=== PATIENT | female | born 1940 | race Caucasian/White ===

== ENCOUNTER → 2016-09-14 | Outpatient (CLI) | payer MEDICARE, OTHER | LOC: GMAH 15:22 | PROVIDERS: ATTEND Family Medicine | DX: N30.00 Acute cystitis without hematuria (principal) ==

== ENCOUNTER → 2017-01-31 | Outpatient (CLI) | payer MEDICARE, OTHER | LOC: MAMMO 09:50 | PROVIDERS: ATTEND Family Medicine | DX: Z12.31 Encounter for screening mammogram for malignant neoplasm of breast (principal) | CPT/HCPCS: 77063; G0202 ==

== ENCOUNTER → 2017-10-01 | Outpatient (CLI) | payer MEDICARE, OTHER ==
--- NOTE | 2017-10-01 14:39 | CT ---
EXAM DESCRIPTION: Chest w/o Contrast CLINICAL HISTORY: 76 years Female, ASTHMA COMPARISON: None available TECHNIQUE: Contiguous thin section axial images through the chest were obtained without the administration of intravenous contrast. Sagittal and coronal reconstructions were reviewed. FINDINGS: The visualized thyroid gland and supraclavicular region appear normal. No evidence of abnormally enlarged axillary lymphadenopathy. Mildly enlarged and calcified mediastinal hilar lymph nodes noted. Extensive calcification of the aortic arch and coronary artery calcifications noted. The central tracheobronchial tree is patent. Review of the lung windows demonstrate moderate emphysematous changes in both lungs. Scarring of the bilateral lung apices likely appears chronic. A 2.0 x 1.8 cm groundglass opacity in the anterior segment of the right upper lobe could represent infectious/inflammatory etiology. Multiple calcified granulomas are noted scattered throughout the right lung. There is 6 mm partially calcified in the right lower lobe. Multiple tiny noncalcified nodules scattered throughout the left lung which are too small to characterize, however close interval follow-up is recommended. Bronchiectatic changes with scarring is noted in both lungs along with pleural thickening in the apico-posterior segment of the left upper lobe, which also appears chronic. No evidence of pleural effusions. The heart is normal in size with no pericardial effusion. Moderate thickening of the distal esophagus is noted, could be sequelae of reflux esophagitis. Limited evaluation of the upper abdomen demonstrates no gross abnormality. The visualized bones demonstrate mild to moderate degenerative changes of the thoracic and visualized lumbar spine with vacuum disc phenomenon in the lumbar spine. IMPRESSION: 1. A 2.0 x 1.8 cm noncalcified groundglass opacity in the anterior segment of the right upper lobe with multiple small irregular groundglass opacities scattered throughout the right lung could represent infectious/inflammatory etiology. However close interval follow-up is recommended for resolution. 2. Multiple calcified and noncalcified nodules are noted in both lungs, the largest noncalcified/partially calcified nodule in the right lower lobe measuring up to 6 mm which are too small to characterize. Given no prior examination, close interval follow-up is recommended for stability. This exam was performed according to our departmental dose-optimization program, which includes automated exposure control, adjustment of the mA and/or kV according to patient size and/or use of iterative reconstruction technique. Electronically signed by: Tha Wilkins MD 10/01/2017 2:37 PM CDT
== END ==
LOC: CT 10:23
PROVIDERS: ATTEND Internal Medicine
DX: J45.909 Unspecified asthma, uncomplicated (principal); R91.8 Other nonspecific abnormal finding of lung field

== ENCOUNTER → 2018-02-06 | Outpatient (CLI) | payer MEDICARE, OTHER ==
--- NOTE | 2018-02-08 10:52 | MAM ---
EXAM DESCRIPTION: 3D Screening BILATERAL : Digital Mammography. CLINICAL HISTORY: 77 years Female SCREENING . No complaints. No personal or family history of breast cancer. Childbirth. Postmenopausal. No HRT. Bilateral breast cyst aspiration. Lifetime risk of developing breast cancer (Tyrer-Cuzick model)(%): 3.2. COMPARISON: Bilateral screening digital breast tomosynthesis 01/31/2017. No prior reports available. TECHNIQUE: Bilateral CC and MLO projection full-field images, digital tomosynthesis mammographic technique. Bilateral digital 2-D full-field MLO images. CAD not available for tomosynthesis or 2-D images. FINDINGS: The breast parenchymal density pattern is: Scattered areas of fibroglandular density. No skin thickening or nipple retraction. Bilateral solitary microcalcifications. Bilateral vascular calcifications. Right axillary lymph node. No new focal, stellate mass or density, focal asymmetry , and no suspicious microcalcifications bilaterally. Stable mammograms compared to prior study. IMPRESSION: Benign exam. BIRAD CATEGORY: 2 BENIGN FINDINGS. RECOMMENDATIONS: FOLLOW UP: Routine digital bilateral mammographic screening, one year interval from January 2018. Written communication explaining the IMPRESSION and follow-up, will be mailed to the patient and referring health care provider. According to the [employer], yearly mammograms are recommended starting at age 40 and continuing as long as a woman is in good health. Any breast change noted on a breast self-exam should be reported promptly to the patient's healthcare provider. Breast MRI is recommended for women with an approximately 20-25% or greater lifetime risk of breast cancer, including women with a strong family history of breast or ovarian cancer and women who have been treated for Hodgkin's disease. A negative mammographic report should not delay tissue diagnosis in patients with significant clinical history or physical findings. Extremely dense breast tissue limits the sensitivity of digital mammography. Electronically signed by: Rah Nagy MD 02/08/2018 10:51 AM [employer]
== END ==
LOC: MAMMO 11:23
PROVIDERS: ATTEND Family Medicine
DX: Z12.31 Encounter for screening mammogram for malignant neoplasm of breast (principal)

== ENCOUNTER → 2018-04-25 | Outpatient (CLI) | payer MEDICARE, OTHER ==
--- NOTE | 2018-04-25 13:24 | CT ---
EXAM DESCRIPTION: Chest w/o Contrast CLINICAL HISTORY: 77 years, Female, DYSPNEA COMPARISON: Previous CT of the chest October 01, 2017 TECHNIQUE: Thin-section noncontrast axial CT images are obtained according to our protocol. Reconstructed MPR images are created and reviewed as well. FINDINGS: Lungs: No acute appearing consolidating pulmonary infiltrate to suggest pneumonia. Scarring is seen in the lung apices. Clustered nodules with groundglass infiltrate in the anterior segment right upper lobe suggest indolent granulomatous infection. Scattered nodules are seen in the right middle lobe which appears hyperlucent suggesting Swyer Lambert sequelae of old infection. Just above the minor fissure, bronchiectasis is seen in the medial anterior segment right upper lobe in an area of scarring. In the periphery of the left upper lobe near the junction of the anterior segment and upper lingula, subpleural fibrotic changes are seen with multiple nodules. 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 Septal thickening in the right lower lobe is noted more than left. Numerous tiny nodules in the right lower lobe are present consistent with chronic indolent infection. Larger nodule in the posterior basal segment left lower lobe measures 7 mm unchanged from previous study. The nodule in the medial basal segment right lower lobe measures 6 mm also unchanged. The nodule in the lateral aspect of the right lower lobe peripherally measures 6 mm unchanged. A nodule in the hyperlucent lateral segment of the right middle lobe measures 8 mm unchanged. Nodule in the lingula measures 7 mm unchanged. Other nodules and areas of scarring or infiltrate appears stable as well. None of these nodules appear to be enlarged to suggest the potential for malignancy. Repeat study in September 2018 is recommended to ensure continued stability. Mediastinum: Prominent paracardiac lymph nodes appear stable, likely reactive. Right epiphrenic and left epiphrenic prominent nodes are also stable. In the mediastinum, multiple calcified lymph nodes are stable compared to the previous study. Calcified nodes can be seen with old tuberculosis or silicosis. Treated lymphoma or sarcoidosis may have calcified nodes as well. There is moderate coronary arterial calcification. Small hiatal hernia is present. Normal vascular contours. Heart size is normal with no pericardial effusion. Chest wall/axilla: No mass or adenopathy. Lower neck/supraclavicular: No mass or adenopathy. Upper abdomen: Unremarkable upper abdominal viscera. Coronal and sagittal reformatted images confirm the findings. Advanced degenerative disc disease in the T-spine. Sternum appears intact. Prominent caliber of the ascending aorta measures 3.7 cm. IMPRESSION: Scarring and granulomatous changes in the lungs. Measured lung nodules are stable compared to previous study. Follow-up chest CT is recommended in September 2018. This exam was performed according to our departmental dose-optimization program, which includes automated exposure control, adjustment of the mA and/or kV according to patient size and/or use of iterative reconstruction technique. Total DLP equals 219.04 mGycm. Electronically signed by: Saul Sinclair MD 04/25/2018 1:23 PM [facility]
== END ==
LOC: CT 10:58
PROVIDERS: ATTEND Internal Medicine
DX: R06.00 Dyspnea, unspecified (principal); J45.909 Unspecified asthma, uncomplicated; J38.3 Other diseases of vocal cords; Z85.72 Personal history of non-Hodgkin lymphomas

== ENCOUNTER → 2018-12-19 | Outpatient (CLI) | payer MEDICARE, OTHER | LOC: GMA MATASK 10:34 | PROVIDERS: ATTEND Family Medicine | DX: I10 Essential (primary) hypertension (principal) ==

== ENCOUNTER → 2019-04-23 | Outpatient (CLI) | payer MEDICARE, OTHER ==
--- NOTE | 2019-04-23 16:16 | RAD ---
EXAM DESCRIPTION: Shoulder,Left 2 or More Views CLINICAL HISTORY: PAIN IN LEFT SHOULDER COMPARISON: None. IMPRESSION: 2 views of the left shoulder show comminuted moderately displaced and impacted fracture of the proximal left humerus including the humeral head. Fracture does appear to involve the articular surface. No glenohumeral joint dislocation. The left acromioclavicular joint shows mild osteoarthritic changes. Calcifications of the thoracic aorta are seen. Electronically signed by: David Piña MD 04/23/2019 4:15 PM [facility]
== END ==
LOC: RAD 08:53
PROVIDERS: ATTEND Orthopaedic Surgery
DX: S42.292A Other displaced fracture of upper end of left humerus, initial encounter for closed fracture (principal); M19.012 Primary osteoarthritis, left shoulder; I70.0 Atherosclerosis of aorta

== ENCOUNTER → 2019-05-02 | Outpatient (CLI) | payer MEDICARE, OTHER ==
--- NOTE | 2019-05-02 19:34 | RAD ---
EXAM DESCRIPTION: Radiographs of the left Shoulder:XR/CR/DR CLINICAL HISTORY: CLOSED FRACTURE OF PROXIMAL LEFT HUMERUS COMPARISON: Radiographs left shoulder and humerus April 23. TECHNIQUE: Three views. Internal and External rotation. Scapular "Y" image. FINDINGS: Comminuted fracture of the left humeral head with fracture and angulation of the surgical neck of the left humeral head again noted. Varus deformity of the surgical neck. The head is angulated medially from the surgical neck. Mild subluxation at the glenohumeral joint again seen. Arthrosis with no fracture or dislocation AC joint. IMPRESSION: Fracture of the surgical neck of the left humerus with varus deformity and comminuted fragments in the humeral head. Varus deformity may have increased since the prior study, and there is also further inferior subluxation of the head from the glenoid fossa of the left scapula. Electronically signed by: Rah Nagy MD 05/02/2019 7:32 PM [facility] [place]
== END ==
LOC: RAD 10:11
PROVIDERS: ATTEND Orthopaedic Surgery
DX: S42.212D Unspecified displaced fracture of surgical neck of left humerus, subsequent encounter for fracture with routine healing (principal); S43.312 Subluxation of left scapula; M21.822 Other specified acquired deformities of left upper arm

== ENCOUNTER → 2019-05-20 | Outpatient (CLI) | payer MEDICARE, OTHER ==
--- NOTE | 2019-05-20 17:35 | RAD ---
EXAM DESCRIPTION: Shoulder,Left 2 or More Views CLINICAL HISTORY: CLOSED FRACTURE OF PROXIMAL LEFT HUMERUS COMPARISON: 02 May 2019 TECHNIQUE: 2 views left FINDINGS: Exam demonstrates a comminuted fracture of the region of the surgical neck of the left humerus. It remains essentially unchanged from the previous exam. Minimal callus formation is observed at the fracture site. No evidence to suggest dislocation is seen. IMPRESSION: A comminuted fracturing of the surgical neck of the left humerus is again observed unchanged from the previous exam. Electronically signed by: Job Landry MD 05/20/2019 5:34 PM [facility]
== END ==
LOC: RAD 10:12
PROVIDERS: ATTEND Orthopaedic Surgery
DX: S42.202D Unspecified fracture of upper end of left humerus, subsequent encounter for fracture with routine healing (principal)

== ENCOUNTER → 2019-06-26 | Outpatient (CLI) | payer MEDICARE, OTHER ==
--- NOTE | 2019-06-26 10:00 | RAD ---
EXAM DESCRIPTION: Shoulder,Left 1 View CLINICAL HISTORY: Fracture COMPARISON: 05/30/2019. TECHNIQUE: Single frontal views of the left shoulder. FINDINGS/IMPRESSION: Single view of the left shoulder demonstrate interval placement of a left reverse shoulder long stem arthroplasty with overlying skin corine. Small residual bony fragmentation from the comminuted humerus neck fracture proximally. There is no new periprosthetic fracture. Intact hardware without hardware dislocation or subluxation. Electronically signed by: Manuelito Trejo DO 06/26/2019 9:58 AM CDT
== END ==
LOC: RAD 09:29
PROVIDERS: ATTEND Orthopaedic Surgery
DX: S42.202D Unspecified fracture of upper end of left humerus, subsequent encounter for fracture with routine healing (principal); Z96.612 Presence of left artificial shoulder joint; Z18.39 Other retained organic fragments

== ENCOUNTER → 2019-07-28 | Outpatient (CLI) | payer MEDICARE, OTHER ==
--- NOTE | 2019-07-28 09:49 | RAD ---
EXAM DESCRIPTION: Shoulder,Left 1 View CLINICAL HISTORY: CLOSED FRACTURE OF PROXIMAL LEFT HUMERUS COMPARISON: Previous study June 26, 2019 and May 30, 2019 TECHNIQUE: Two views of the left shoulder. FINDINGS: Reverse left shoulder arthroplasty with no change in alignment compared to previous study. Small bone fragment is seen medially. The humeral stem is centrally situated with no complicating fracture distally. The glenoid component appears normally situated. Degenerative narrowing of the AC joint. No scapular fracture is seen. The left clavicle appears intact. IMPRESSION: Reverse left shoulder arthroplasty with alignment unchanged compared to previous study. Electronically signed by: Saul Sinclair MD 07/28/2019 9:48 AM CDT
== END ==
LOC: RAD 09:20
PROVIDERS: ATTEND Orthopaedic Surgery
DX: S42.202D Unspecified fracture of upper end of left humerus, subsequent encounter for fracture with routine healing (principal); Z96.612 Presence of left artificial shoulder joint; Z98.890 Other specified postprocedural states

== ENCOUNTER → 2019-09-08 | Outpatient (CLI) | payer MEDICARE, OTHER ==
--- NOTE | 2019-09-08 10:39 | RAD ---
EXAM DESCRIPTION: Shoulder,Left 2 or More Views CLINICAL HISTORY: CLOSED FRACTURE OF PROXIMAL LEFT HUMEROUS COMPARISON: None Available. TECHNIQUE: Three x-ray views of the left shoulder. FINDINGS: Left shoulder reverse arthroplasty with anatomic alignment of humeral and acetabular components. Fracture fragment is seen medially. Another bone fragment seen above the level of the prosthetic joint. Calcified aortic arch. Blunting of left costophrenic angle. Bones appear osteopenic or osteoporotic. IMPRESSION: Reverse left shoulder arthroplasty with small bone fragments inferiorly and superiorly. Electronically signed by: Saul Sinclair MD 09/08/2019 10:37 AM CDT
== END ==
LOC: RAD 09:59
PROVIDERS: ATTEND Orthopaedic Surgery
DX: S42.202D Unspecified fracture of upper end of left humerus, subsequent encounter for fracture with routine healing (principal); M24.012 Loose body in left shoulder; Z96.612 Presence of left artificial shoulder joint

== ENCOUNTER → 2019-09-11 | Outpatient (CLI) | payer MEDICARE, OTHER ==
--- NOTE | 2019-09-11 12:45 | CT ---
EXAM DESCRIPTION: Pelvis CLINICAL HISTORY: 78 years Female, MASS OF SOFT TISSUE TECHNIQUE: This exam was performed according to our departmental dose-optimization program, which includes automated exposure control, adjustment of the mA and/or kV according to patient size and/or use of iterative reconstruction technique. COMPARISON: None at time of initial interpretation. FINDINGS: Presumed hysterectomy. No adnexal mass. The bladder is decompressed. Scattered colonic diverticula without focal inflammatory change. The visualized bowel is normal in caliber without evidence of obstruction or focal inflammatory change. No findings to suggest appendicitis. No adenopathy. No focal fluid collection. No free air. Diffuse atherosclerotic disease. The visualized aorta is normal in caliber. No acute or suspicious osseous abnormality. Scattered degenerative changes present. No suspicious mass identified. IMPRESSION: No evidence of acute process in the pelvis. Electronically signed by: Haroldo Shanks MD 09/11/2019 12:44 PM CDT
== END ==
LOC: CT 09:00
PROVIDERS: ATTEND Orthopaedic Surgery
DX: R22.9 Localized swelling, mass and lump, unspecified (principal)

== ENCOUNTER → 2019-10-20 | Outpatient (CLI) | payer MEDICARE, OTHER ==
--- NOTE | 2019-10-20 14:05 | MRI ---
EXAM DESCRIPTION: Thoracic Spine w/o Contrast CLINICAL HISTORY: 78 years Female, PAIN COMPARISON: None. TECHNIQUE: Multisequence, multiplanar images of the thoracic spine without intravenous contrast. FINDINGS: Vertebrae: No acute fracture. No acute compression deformity. Mild dextro curvature centered at T7. Moderate severe thoracic kyphosis centered at T6-T7. 3 mm grade 1 retrolisthesis of T11 relative to T12 and T12 relative to L1 likely contributed by facet hypertrophy. Modic type degenerative endplate changes at T11-T12. There is increased STIR signal without corresponding T1 and T2 signal abnormality of the visualized right first and second ribs, which may be secondary to incomplete suppression artifact and less likely edema. Spinal cord: Normal cord signal. Flattening of the left ventral spinal cord at T7-T8 conjunctivae disc protrusion as detailed below. Discs, facets, spinal canal and neural foramina: There is disc desiccation throughout the thoracic spine. Mild disc space narrowing at T7-T8 through T9-T10 and moderate disc space narrowing at T12-L1. T3-T4: Tiny posterior upper central disc protrusion measuring no greater than 1 to 2 mm AP. Spinal canal and neuroforamina patent. T6-T7: Minimal posterior left paracentral disc protrusion measuring no greater than 2 mm AP. Spinal canal and neuroforamina patent. T7-T8: Posterior left paracentral broad-based disc protrusion measuring 10 mm transverse and up to 3-4 mm AP contributing to mild spinal canal stenosis and focal indentation of the left ventral spinal cord. Neuroforamina patent. T8-T9: Small disc bulge eccentric towards left. Spinal canal and neuroforamina predominantly patent. T11-T12: Uncovering posterior disc space and superimposed small disc bulge eccentric towards the left. Severe facet arthropathy. Spinal canal patent. Mild right and moderate left neural foraminal stenosis. T12-L1: Unroofing the posterior disc space and superimposed small moderate disc bulge. Severe facet arthropathy. Mild spinal canal stenosis. Severe right greater than left neural foraminal stenosis. Paraspinous soft-tissues: Unremarkable paravertebral soft tissues. Trace right and large left pleural effusions. IMPRESSION: 1. No acute fracture. Increased STIR signal about the visualized right first and second ribs likely represent incomplete suppression artifact, less likely marrow edema. 2. Thoracic spondylosis as above with no greater than mild spinal canal stenosis and focal indentation of the left spinal cord at T7-T8. Consider correlation with point tenderness and trauma to this region. 3. Multilevel neural foraminal compromise, greatest and severe right greater than left T12. 4. Small right and large left pleural effusions. Electronically signed by: Hossein Cano MD 10/20/2019 2:03 PM CDT
== END ==
LOC: MRI 10:56
PROVIDERS: ATTEND Family Medicine
DX: M47.894 Other spondylosis, thoracic region (principal); M48.04 Spinal stenosis, thoracic region; J90 Pleural effusion, not elsewhere classified; G95.9 Disease of spinal cord, unspecified

== ENCOUNTER → 2019-11-26 | Outpatient (CLI) | payer MEDICARE, OTHER ==
--- NOTE | 2019-11-26 12:29 | MRI ---
EXAM DESCRIPTION: Brain w/oContrast: MRI. 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 TECHNIQUE: Multiplanar, high-field MRI unit, multiple diffusion sequences, multiple conventional sequences without contrast. FINDINGS: Confluent FLAIR and T2-weighted signal in the periventricular white matter in the bilateral fajardo radiata extending into the bilateral centrum semiovale, more prevalent in the left hemisphere. Bilateral periventricular and subcortical white matter focal lesions, with relative sparing of the bilateral temporal lobes. No hemorrhage, no cerebral edema, no midline shift.. Small focal lesions with similar signal in the right basal ganglia. No hemorrhage, no cerebral edema, no mass-effect. Normal signal in the left basal ganglia. Hyperintense T2 and FLAIR signal in the posterior bilateral williams of the brainstem. No hemorrhage, no cerebral edema, no mass-effect. Concordance of the diffusion and non-diffusion sequences with no diffusion restriction. Cortical sulci, and other CSF spaces, and the subdural spaces are normally configured for patients age. Lateral ventricles, third ventricle, and fourth ventricle are dilated with no intraventricular mass visualized. No effacement or displacement. No midline shift. No extra-axial hemorrhage. Normal flow signal void in the major vessels of the [place], and the venous sinuses. IACs are symmetric bilaterally. Minimal fluid signal in the right mastoid air cells; normal signal in the left mastoid air cells. No mass effect in the bilateral cerebellopontine angles. Pituitary gland occupies most of the sella. Base of the cerebellar tonsils is above the foramen magnum. Minimal mucoperiosteal thickening in the bilateral. The bony calvarium is intact. IMPRESSION: 1. White matter periventricular and subcortical white matter disease is diffuse mostly on the left. Most likely related to cerebral microvascular disease or and/or aging. 2. Normal noncontrast MRI diffusion scan with no evidence of significant ischemia or acute or subacute infarction. 3. Minimal prominence of the ventricular system compared to the other CSF spaces suggesting mild nonobstructive hydrocephalus. 4. Minimal chronic paranasal sinusitis. Mild mastoiditis on the right. Electronically signed by: Rah Nagy MD 11/26/2019 12:28 PM CDT
== END | disposition home or self-care (01) ==
LOC: MRI 10:57
PROVIDERS: ATTEND Psychiatry & Neurology Neurology
DX: M05.59 Rheumatoid polyneuropathy with rheumatoid arthritis of multiple sites (principal)

== ENCOUNTER → 2020-01-23 | Outpatient (CLI) | payer MEDICARE, OTHER ==
--- NOTE | 2020-01-26 07:49 | RAD ---
5 radiographs lumbar spine Indication: SPONDYLOLISTHESIS, LUMBAR REGION Comparison: MRI October 16, 2019 Impression: Transitional lumbosacral anatomy present as on the prior. Severe disc space height loss at L5-S1 level with grade 1 anterolisthesis. A rudimentary S1-S2 disc space present. Moderate to severe disc space height loss of the remaining lumbar disc space levels. Trace retrolisthesis of L1-L2 as well as L3 on L4. No appreciable abnormal motion with flexion or extension. No acute fracture. Atherosclerosis aorta. Electronically signed by: Alberto Dailey MD 01/26/2020 7:47 AM CDT
== END ==
LOC: RAD 11:46
PROVIDERS: ATTEND Family Medicine Sports Medicine
DX: M43.17 Spondylolisthesis, lumbosacral region (principal); M43.16 Spondylolisthesis, lumbar region; M51.86 Other intervertebral disc disorders, lumbar region; I70.0 Atherosclerosis of aorta